=== PATIENT | male | born 1955 | race Caucasian/White ===

== ENCOUNTER 2024-06-02 20:23 | Emergency (ER) | payer MEDICARE, MEDICAID ==
[~2024-06-02] VITALS: Ht 170.2 cm; Wt 95.0 kg
[2024-06-02] MEDS ORDERED: GABA-529 PO (20:49)
[2024-06-02] MEDS ORDERED: SITA100 PO (20:49)
[2024-06-02] MEDS ORDERED: ACAR25TA2 PO (20:49)
[2024-06-02] MEDS ORDERED: GLIP5TAB15 PO (20:49)
[2024-06-02] MEDS ORDERED: LOSA1TAB37 PO (20:51)
[2024-06-02] MEDS ORDERED: AMLO10TA55 PO (20:51)
[2024-06-02] MEDS ORDERED: ATOR40TA71 PO (20:51)
[2024-06-02] MEDS ORDERED: CARV12.530 PO (20:51)
[2024-06-02] MEDS ORDERED: ASPI-1444 PO (20:51)
[2024-06-02 21:39] LABS: HEMOGLOBIN 14.3 g/dL (13.5-17.5)
[2024-06-02 21:42] LABS: HEMATOCRIT 42.8 % (41-53); MEAN CORPUSCULAR HEMOGLOBIN 34.4 pg (26.0-34.0); MEAN CORPUSCULAR HGB CONC 33.5 G/dL (31.0-37.0); MEAN CORPUSCULAR VOLUME 103 fL (80-100); PLATELET COUNT (AUTO) 161 K/uL (150-450); RED BLOOD CELL COUNT(AUTO) 4.17 MIL/uL (4.50-5.90); RED CELL DISTRIBUTION WIDTH 13.7 % (11.5-14.5); WHITE BLOOD COUNT (AUTO) 8.6 K/uL (4.5-11.0)
[2024-06-02 21:47] LABS: ANION GAP 12 mmol/L (8-16); CALCIUM, TOTAL 9.3 mg/dL (8.8-10.5); CARBON DIOXIDE 26 mmol/L (22-29); CHLORIDE 101 mmol/L (98-107); CREATININE 0.94 mg/dL (0.60-1.30); GLOMERULAR FILTR. RATE CALC > 60 mL/min (>60); GLUCOSE,RANDOM 174 mg/dL (70-110); POTASSIUM 4.3 mmol/L (3.5-5.1); SODIUM SERUM 139 mmol/L (136-145); UREA NITROGEN, BLOOD 27 mg/dL (7-18)
[2024-06-02 21:55] LABS: TROPONIN I-HIGH SENSITIVITY 73 ng/L (<76)
[2024-06-02 22:02] LABS: BAND NEUTROPHILS % (MANUAL) 3 % (0-5); EOSINOPHILS % (MANUAL) 1 % (1-6); LYMPHOCYTES % (MANUAL) 14 % (22-44); MONOCYTES % (MANUAL) 8 % (2-9); SEGMENTED NEUTROPHILS % 74 % (40-70); TOTAL CELLS COUNTED 100
[2024-06-02 22:04] LABS: RBC MORPHOLOGY COMMENT ABNORMAL RBC MORPH
[2024-06-03 00:13] VITALS: TEMP 97.8
[2024-06-03 00:59] LABS: APPEARANCE,URINE CLEAR (CLEAR); BILIRUBIN,URINE NEGATIVE (NEGATIVE); COLOR,URINE LIGHT YELLOW (YELLOW); GLUCOSE, URINE (UA) 70-100 mg/dL (NEGATIVE); KETONES,URINE TRACE mg/dL (NEGATIVE); LEUKOCYTE ESTERASE ,URINE NEGATIVE (NEGATIVE); NITRATE,URINE NEGATIVE (NEGATIVE); OCCULT BLOOD,URINE NEGATIVE (NEGATIVE); PH,URINE 5.5 (5.0-8.0); PROTEIN,URINE TRACE mg/dL (NEGATIVE); SPECIFIC GRAVITIY, URINE 1.024 (1.003-1.030); UROBILINOGEN,URINE <=1.0 mg/dL (<=1.0)
[2024-06-03 01:31] LABS: BACTERIA,URINE Few /HPF (None Seen); RBC,URINE 0-2 /HPF (0-2); WBC,URINE 0-2 /HPF (0-5)
[2024-06-03 01:40] VITALS: BP 164/75; PULSE 70; RESP 18; O2SAT 98
[2024-06-03] MEDS: ACETAMINOPHEN/CODEINE 300-30 MG TABLET PO ONE (02:47)
[2024-06-03] MEDS: MECLIZINE HCL 25 MG TABLET PO ONE (02:47)
[2024-06-03 02:48] LABS: TROPONIN I-HIGH SENSITIVITY 75 ng/L (<76)
[2024-06-03] MEDS ORDERED: DICL100G60 TP (04:32)
[2024-06-03] MEDS ORDERED: MECL-134 PO (04:32)
[2024-06-03] MEDS ORDERED: IBUP-1554 PO (04:32)
== END 2024-06-03 06:24 | disposition home or self-care (01) ==
LOC: EMS 20:27
DX: G89.29 Other chronic pain (principal); M54.2 Cervicalgia; R42 Dizziness and giddiness; E11.9 Type 2 diabetes mellitus without complications; E78.00 Pure hypercholesterolemia, unspecified; I10 Essential (primary) hypertension; Z98.890 Other specified postprocedural states
CPT/HCPCS: 70450; 80048; 81001; 84484; 85025; 93005; 99284